=== PATIENT | female | born 1960 | race African-American/Black ===

== ENCOUNTER 2017-02-25 07:00 | Inpatient (IN) | payer OTHER ==
[2017-02-26 06:04] LABS: HCT 28.9 % (37.0-47.0); HGB 9.1 g/dl (12.5-16.0); MCH 28.2 pg (25.0-31.0); MCHC 31.5 g/dL (32.0-36.0); MCV 89.5 fL (78.0-100.0); MPV 10.9 fL (6.0-9.5); RBC 3.23 M/uL (4.20-5.40); RDW 13.4 % (11.5-14.0); WBC 7.4 K/uL (4.0-10.5)
[2017-02-26 06:21] LABS: CREATININE 1.1 mg/dL (0.5-1.0); POTASSIUM 4.4 mmol/L (3.5-5.1)
[2017-02-27 05:16] LABS: HCT 27.6 % (37.0-47.0); HGB 8.8 g/dl (12.5-16.0); MCH 28.2 pg (25.0-31.0); MCHC 31.9 g/dL (32.0-36.0); MCV 88.5 fL (78.0-100.0); MPV 12.1 fL (6.0-9.5); RBC 3.12 M/uL (4.20-5.40); RDW 13.1 % (11.5-14.0); WBC 7.9 K/uL (4.0-10.5)
[2017-02-27 05:34] LABS: CREATININE 0.9 mg/dL (0.5-1.0); POTASSIUM 3.9 mmol/L (3.5-5.1)
[2017-02-28 05:15] LABS: HCT 27.2 % (37.0-47.0); HGB 8.5 g/dl (12.5-16.0); MCH 27.9 pg (25.0-31.0); MCHC 31.3 g/dL (32.0-36.0); MCV 89.2 fL (78.0-100.0); RBC 3.05 M/uL (4.20-5.40); RDW 13.1 % (11.5-14.0); WBC 7.3 K/uL (4.0-10.5)
[2017-02-28] MEDS ORDERED: BACLOFEN 10MG T10 MG PO (14:05)
[2017-02-28] MEDS ORDERED: XARELTO10 MG PO (14:06)
[2017-02-28] MEDS ORDERED: PERCOCET 5/3251 TAB PO (14:08)
[2017-02-28] MEDS ORDERED: METFORMIN HCL500 MG PO (14:09)
[2017-02-28] MEDS ORDERED: VITAMIN D5000 UNIT PO (14:09)
[2017-02-28] MEDS ORDERED: ZESTORETIC 20-1 EACH PO (14:09)
[2017-02-28] MEDS ORDERED: FEOSOL325 MG PO (14:10)
[2017-02-28] MEDS ORDERED: PRAVACHOL20 MG PO (14:10)
[2017-02-28] MEDS ORDERED: RANITIDINE PO (14:10)
[2017-02-28] MEDS ORDERED: ESSENTIAL DAIL1 EACH PO (14:11)
== END 2017-02-28 13:16 | disposition home health service (06) | DRG 470 ==
LOC: FMS 07:00
PROVIDERS: Internal Medicine; ADMIT Orthopaedic Surgery
PROC: 8E0YXBZ Computer Assisted Procedure of Lower Extremity (ICD-10-PCS; 2017-02-25)
PROC: 0SRD0J9 Replacement of Left Knee Joint with Synthetic Substitute, Cemented, Open Approach (ICD-10-PCS; principal; 2017-02-25 07:00)
DX: M17.12 Unilateral primary osteoarthritis, left knee (principal); D62 Acute posthemorrhagic anemia; I10 Essential (primary) hypertension; E11.9 Type 2 diabetes mellitus without complications; E78.5 Hyperlipidemia, unspecified; K21.9 Gastro-esophageal reflux disease without esophagitis
CPT/HCPCS: 36415; 73560; 80048; 82962; 86850; 86900; 86901; 88305; 88311; 94010; 94762; 97110; 97116; 97162; 97165; 97530-GP; 97535; C1713; C1776; J0131; J0697; J1170; J1885; J2270; J2405; J2704; J2795; J2916; J3010